=== PATIENT | female | born 1960 | race Caucasian/White ===

== ENCOUNTER 2022-02-04 09:20 | Outpatient (CLI) | payer OTHER, BC | END 2022-02-04 09:21 | disposition home or self-care (01) | LOC: CSHMAMMO 09:20 | PROVIDERS: ATTEND Internal Medicine Rheumatology | DX: M80.00XS Age-related osteoporosis with current pathological fracture, unspecified site, sequela (principal); M85.88 Other specified disorders of bone density and structure, other site | CPT/HCPCS: 77080 ==